=== PATIENT | male | born 1995 | race Caucasian/White ===

== ENCOUNTER 2017-06-07 12:44 | Emergency (ER) | payer SELFPAY, MEDICAID | END 2017-06-07 13:35 | disposition home or self-care (01) | LOC: E/R 12:44 | DX: Z71.1 Person with feared health complaint in whom no diagnosis is made (principal) | CPT/HCPCS: 99282 ==

== ENCOUNTER 2018-01-27 09:42 | Emergency (ER) | payer MEDICAID ==
[2018-01-27] MEDS: HYDROCODONE/APAP (5/325) TAB PO (10:35)
== END 2018-01-27 10:57 | disposition home or self-care (01) ==
LOC: FTE 09:42
DX: K08.89 Other specified disorders of teeth and supporting structures (principal)
CPT/HCPCS: 99283; Z7502